=== PATIENT | female | born 1960 | race Caucasian/White ===

== ENCOUNTER 2016-12-05 21:14 | Emergency (ER) | payer BC ==
[~2016-12-05] VITALS: Ht 162.6 cm; Wt 77.2 kg
[~2016-12-05 21:14] MED LIST: CEPH500C3 PO; TRAM50 PO
[2016-12-05 21:16] VITALS: BP 176/79; PULSE 72; RESP 20; TEMP 97.9; O2SAT 98
[2016-12-05 22:00] VITALS: BP 129/60; PULSE 63; RESP 14; O2SAT 98
[2016-12-05] MEDS ORDERED: ONDANSETRON HCL 4 MG/2 ML VIAL IM ONE (22:00)
[2016-12-05] MEDS ORDERED: ONDANSETRON HCL 4 MG/2 ML VIAL IVP ONE (22:00)
[2016-12-05] MEDS ORDERED: SODIUM CHLORIDE 0.9% FLUSH 10 ML FLUSH IV FLUSH PRN (22:00)
[2016-12-05 22:12] LABS: BLOOD, URINE NEG (NEG); GLUCOSE,URINE NEG (NEG); KETONE, URINE NEG (NEG); NITRITE,URINE NEG (NEG)
[2016-12-05 22:15] LABS: URINE COLOR YELLOW (YELLW/STRAW)
[2016-12-05 22:17] LABS: SQUAMOUS EPITHELIAL CELL URINE 0-5 /hpf (0-5)
[2016-12-05 22:18] LABS: COMMENT (UR) CULT NOT INDICATED; CULTURE IF INDICATED CULT NOT INDICATED
--- NOTE | 2016-12-05 22:25 | PD ---
HPI Chief Complaint: Abdominal Pain Time Seen by Provider: 21:22 Travel History International Travel<30 days: No Contact w/Intl Traveler<30days: No Traveled to known affect area: No History of Present Illness HPI Patient is a 56 year old female presents to the ER with complaints of epigastric pain for the past 4 days, intermittent, moderate, nagging. Cramping in nature. No relieving or exacerbating factors. No disarrhea, constipation, hematemesis, no hematochezia no melena, no fever, no skin color changes, no easy bleeding nor bruising. Assoricated with nausea. Radiates up into her low sub sternal area. PFSH Past Medical History Medical History: Denies Significant Hx Diminished Hearing: No Immunizations Current: Yes Tetanus Vaccination: < 5 Years Influenza Vaccination: Yes Menopausal: Yes Past Surgical History Hysterectomy: Yes Tonsillectomy: Yes Other Surgery: Yes (KIDNEY SURGERY AGE 8) Social History Alcohol Use: Yes (Occasionally) Tobacco Use: No Substance Use: No Allergies-Medications (Allergen,Severity, Reaction): Coded Allergies: sulfamethoxazole (Unverified Allergy, Unknown, 12/05/16) trimethoprim (Unverified Allergy, Unknown, 12/05/16) Sulfa (Sulfonamide Antibiotics) (Unverified Adverse Reaction, Intermediate , n/v, 12/05/16) Reported Meds & Prescriptions Reported Meds & Active Scripts Active Review of Systems Except as stated in HPI: all other systems reviewed are Neg Physical Exam Narrative GENERAL: WD/WN in nad. SKIN: Warm and dry. No bruising noted. HEAD: Atraumatic. Normocephalic. EYES: Pupils equal and round. No scleral icterus. No injection or drainage. ENT: No nasal bleeding or discharge. Mucous membranes pink and moist. NECK: Trachea midline. No JVD. CARDIOVASCULAR: Regular rate and rhythm. RESPIRATORY: No accessory muscle use. Clear to auscultation. Breath sounds equal bilaterally. GASTROINTESTINAL: Abdomen soft, perhaps minimally tender in the ruq. Cunningham's negative, nondistended. Hepatic and splenic margins not palpable. MUSCULOSKELETAL: Extremities without clubbing, cyanosis, or edema. No obvious deformities. NEUROLOGICAL: Awake and alert. No obvious cranial nerve deficits. Motor grossly within normal limits. Five out of 5 muscle strength in the arms and legs. Normal speech. PSYCHIATRIC: Appropriate mood and affect; insight and judgment normal. Data Data Last Documented VS Vital Signs Date Time Temp Pulse Resp B/P (MAP) Pulse Ox O2 Delivery O2 Flow Rate FiO2 12/06/16 00:45 54 14 131/64 (86) 98 Room Air 12/05/16 21:16 97.9 Orders Orders Complete Blood Count With Diff (12/05/16 21:58) Comprehensive Metabolic Panel (12/05/16 21:58) Lipase (12/05/16 21:58) Iv Access Insert/Monitor (12/05/16 21:58) Ecg Monitoring (12/05/16 21:58) Oximetry (12/05/16 21:58) Ondansetron Inj (Zofran Inj) (12/05/16 22:00) Sodium Chloride 0.9% Flush (Ns Flush) (12/05/16 22:00) Electrocardiogram (12/05/16 21:58) Ondansetron Inj (Zofran Inj) (12/05/16 22:00) Troponin I (12/05/16 21:58) Urinalysis - C+S If Indicated (12/05/16 22:01) Al-Mag Hy-Si 40-40-4 Mg/Ml Liq (Mag-Al P (12/05/16 22:45) Lidocaine 2% Viscous (Xylocaine 2% Visco (12/05/16 22:45) Ct Abd/Pel W Iv Contrast(Rout) (12/05/16 ) Iohexol 350 Inj (Omnipaque 350 Inj) (12/05/16 22:59) Ed Discharge Order (12/06/16 00:38) Labs Laboratory Tests Test 12/05/16 21:20 12/05/16 22:05 Urine Color YELLOW Urine Turbidity CLOUDY Urine pH 8.0 Urine Specific Warren 1.013 Urine Protein NEG mg/dL Urine Glucose (UA) NEG mg/dL Urine Ketones NEG mg/dL Urine Occult Blood NEG Urine Nitrite NEG Urine Bilirubin NEG Urine Leukocyte Esterase NEG Urine Squamous Epithelial Cells 0-5 /hpf Urine Amorphous Sediment LARGE Microscopic Urinalysis Comment CULT NOT INDICATED White Blood Count 6.9 TH/MM3 Red Blood Count 5.04 MIL/MM3 Hemoglobin 14.3 GM/DL Hematocrit 43.2 % Mean Corpuscular Volume 85.7 FL Mean Corpuscular Hemoglobin 28.5 PG Mean Corpuscular Hemoglobin Concent 33.2 % Red Cell Distribution Width 12.3 % Platelet Count 236 TH/MM3 Mean Platelet Volume 8.9 FL Neutrophils (%) (Auto) 74.8 % Lymphocytes (%) (Auto) 16.4 % Monocytes (%) (Auto) 7.8 % Eosinophils (%) (Auto) 0.6 % Basophils (%) (Auto) 0.4 % Neutrophils # (Auto) 5.3 TH/MM3 Lymphocytes # (Auto) 1.1 TH/MM3 Monocytes # (Auto) 0.5 TH/MM3 Eosinophils # (Auto) 0.0 TH/MM3 Basophils # (Auto) 0.0 TH/MM3 CBC Comment DIFF FINAL Differential Comment Blood Urea Nitrogen 20 MG/DL Creatinine 0.75 MG/DL Random Glucose 120 MG/DL Total Protein 7.2 GM/DL Albumin 3.6 GM/DL Calcium Level 9.0 MG/DL Alkaline Phosphatase 212 U/L Aspartate Amino Transf (AST/SGOT) 1551 U/L Alanine Aminotransferase (ALT/SGPT) 1223 U/L Total Bilirubin 0.8 MG/DL Sodium Level 136 MEQ/L Potassium Level 3.7 MEQ/L Chloride Level 100 MEQ/L Carbon Dioxide Level 31.0 MEQ/L Anion Gap 5 MEQ/L Estimat Glomerular Filtration Rate 80 ML/MIN Troponin I LESS THAN 0.02 NG/ML Lipase 139 U/L MDM Medical Decision Making Medical Screen Exam Complete: Yes Emergency Medical Condition: Yes Interpretation(s) EKG shows sinus brissa, normal axis, normal intervals, no stt changes. Normal ekg except for rate. Differential Diagnosis Gastritis, PUD, GERD lead differential. ALso considered are liver disease, pancreatitis, cholecystitis, constipation. Narrative Course Patient roomed in ed. Abdomen is benign. However, patient has significant transaminitis. On further history she did do some drinking a few nights where she drank 5 12oz beers. She is not heavy drinker. Sister and mother had hepatitis, but she denies any direct exposure. Patient bilirubin and protein levels normal. CT scan shows no significant abnormality: Last 24 hours Impressions Abdomen/Pelvis CT 12/05/16 0000 Signed Impressions: Service Date/Time: Monday, December 05, 2016 23:56 - CONCLUSION: 1. No acute abnormality. 2. Hepatic steatosis with a solitary 1.2 cm mass likely representing a hemangioma. Yevgeniy Khanna MD All of the results were discussed with the patient. Differentials are hepatitis (acute vs chronic, later favored given afebrile and symptoms suggest gastric cause), GERD, FARR. She is much more comfortable after GI cocktails. Discussed further workup is indicated and she was offered admission but discussed could follow up with PCP for further workup, she would like to go home I think this is reasonable. Discussed at length return to ED criteria. Stable for discharge Diagnosis Primary Impression: Transaminitis Additional Impression: Epigastric abdominal pain Additional Instructions: Recommend follow up with your primary care physician this upcoming week. Return to the ER with any yellowing of the skin, swelling of the legs or abdomen , SOB, or easy bruising, blood in the stool or vomit or pale stools. Take mylanta as needed. AVOID TYLENOL(ACETAMINOPHEN) AND ALCOHOL. Talk to your doctor about a hepatitis test. Disposition: 01 DISCHARGE HOME Condition: Stable David So MD Dec 05, 2016 22:25
[2016-12-05 22:34] LABS: AUTOMATED NEUTROPHIL # 5.3 TH/MM3 (1.8-7.7); BASOPHIL % 0.4 % (0.0-2.0); EOSINOPHIL % 0.6 % (0.0-4.0); HEMATOCRIT 43.2 % (35.0-46.0); HEMO FLAGS DIFF FINAL; LYMPH % 16.4 % (9.0-44.0); LYMPHOCYTE # 1.1 TH/MM3 (1.0-4.8); MEAN CELL VOLUME 85.7 FL (80.0-100.0); MEAN CORPUSCULAR HEMOGLOBIN 28.5 PG (27.0-34.0); MEAN CORPUSCULAR HGB CONC 33.2 % (32.0-36.0); MONO % 7.8 % (0.0-8.0); NEUT % 74.8 % (16.0-70.0); PLATELET COUNT 236 TH/MM3 (150-450); RED BLOOD COUNT 5.04 MIL/MM3 (4.00-5.30); RED CELL DISTRIBUTION WIDTH 12.3 % (11.6-17.2); WHITE BLOOD COUNT 6.9 TH/MM3 (4.0-11.0)
[2016-12-05 22:44] LABS: CHLORIDE 100 MEQ/L (98-107); POTASSIUM 3.7 MEQ/L (3.5-5.1); SODIUM (NA) 136 MEQ/L (136-145)
[2016-12-05] MEDS ORDERED: LIDOCAINE VISCOUS 2% SOLN 15 ML UDC PO ONE (22:45)
[2016-12-05] MEDS ORDERED: ALUMINUM/MAGNESIUM/SIMETH 30 ML CUP PO ONE (22:45)
[2016-12-05 22:48] LABS: ANION GAP 5 MEQ/L (5-15); BLOOD UREA NITROGEN 20 MG/DL (7-18)
[2016-12-05 22:51] LABS: GLOMERULAR FILTRATION RATE 80 ML/MIN (>89)
[2016-12-05 22:53] LABS: TOTAL BILIRUBIN ADULT 0.8 MG/DL (0.2-1.0)
[2016-12-05 22:54] LABS: ALKALINE PHOSPHATASE 212 U/L (45-117)
[2016-12-05 22:59] LABS: ALT (GPT) 1223 U/L (10-53); AST (GOT) 1551 U/L (15-37)
[2016-12-05] MEDS ORDERED: IOHEXOL 350 MG/ML 10 ML VIAL (for RAD DIAG) IVCONTRAST ONE (22:59)
--- NOTE | 2016-12-06 00:21 | RADRPT ---
EXAM DATE/TIME: 12/05/2016 23:56 [facility] COMPARISON: No previous studies available for comparison. INDICATIONS : Mid to lower abdominal pain for 4 days. IV CONTRAST: 99 cc Omnipaque 350 (iohexol) IV ORAL CONTRAST: No oral contrast ingested. RADIATION DOSE: 8.96 CTDIvol (mGy) MEDICAL HISTORY : None SURGICAL HISTORY : Hysterectomy. Kidney surgery as a child ENCOUNTER: Initial ACUITY: 4 - 6 days PAIN SCALE: 7/10 LOCATION: lower quadrant abdomen TECHNIQUE: Volumetric scanning of the abdomen and pelvis was performed. Using automated exposure control and ad justment of the mA and/or kV according to patient size, radiation dose was kept as low as reasonably achievable to obtain optimal diagnostic quality images. DICOM format image data is available electro nically for review and comparison. FINDINGS: LOWER LUNGS: The visualized lower lungs are clear. LIVER: There is decreased density seen in the liver. There is a 1.2 cm hypodense mass in the posterior segme nt of the right lobe of the liver. SPLEEN: Normal size without lesion. PANCREAS: Within normal limits. KIDNEYS: Normal in size and shape. There is no mass, stone or hydronephrosis. ADRENAL GLANDS: Within normal limits. VASCULAR: There is no aortic aneurysm. BOWEL/MESENTERY: There appears to be a mild hiatal hernia. ABDOMINAL WALL: Within normal limits. RETROPERITONEUM: There is no lymphadenopathy. BLADDER: No wall thickening or mass. REPRODUCTIVE: Within normal limits. INGUINAL: There is no lymphadenopathy or hernia. MUSCULOSKELETAL: Within normal limits for patient age. CONCLUSION: 1. No acute abnormality. 2. Hepatic steatosis with a solitary 1.2 cm mass likely representing a hemangioma. Yevgeniy Khanna MD on December 06, 2016 at 0:17 Board Certified Radiologist. This report was verified electronically.
[2016-12-06 00:45] VITALS: BP 131/64; PULSE 54; RESP 14; O2SAT 98
[2016-12-06 01:00] VITALS: BP 131/64
--- NOTE | 2016-12-06 05:55 | EKG ---
Date Performed: 12/05/2016 Time Performed: 22:11:51 PTAGE: 56 years EKG: SINUS BRADYCARDIA LOW QRS VOLTAGE IN PRECORDIAL LEADS BORDERLINE ECG NO PREVIOUS TRACING DOCTOR: Jb Carias Interpretating Date/Time 12/06/2016 05:54:58
== END 2016-12-06 01:02 | disposition home or self-care (01) ==
LOC: PHED 21:14
DX: R74.0 Nonspecific elevation of levels of transaminase and lactic acid dehydrogenase [LDH] (principal); R10.13 Epigastric pain; R11.0 Nausea; R94.31 Abnormal electrocardiogram [ECG] [EKG]
CPT/HCPCS: 74177; 80053; 81001; 83690; 84484; 85025; 93005; 96374; 99285; J2405; Q9967